=== PATIENT | male | born 1990 | race Caucasian/White ===

== ENCOUNTER 2022-11-09 15:08 | Emergency (ER) | payer MEDICAID ==
[~2022-11-09] VITALS: Ht 175.3 cm; Wt 59.1 kg
[~2022-11-09 15:08] MED LIST: ALPR-624 PO; OLAN5TAB5 PO
[2022-11-09 16:17] VITALS: BP 110/80
== END 2022-11-09 19:02 | disposition home or self-care (01) ==
LOC: ER 15:09
DX: N64.4 Mastodynia (principal); F31.9 Bipolar disorder, unspecified; F20.9 Schizophrenia, unspecified; Z56.0 Unemployment, unspecified; Z79.899 Other long term (current) drug therapy
CPT/HCPCS: 93005; 99284